=== PATIENT | male | born 1975 | race African-American/Black ===

== ENCOUNTER 2018-01-18 02:09 | Emergency (ER) | payer MEDICAID ==
[~2018-01-18] VITALS: Ht 175.3 cm; Wt 84.1 kg
[2018-01-18 02:18] VITALS: Ht 175.3 cm; Wt 84.1 kg
[2018-01-18 02:32] LABS: BASOPHILS 0.1 % (0-2); EOSINOPHILS 0.2 % (0-7); HEMATOCRIT 47.3 % (42.0-54.0); HEMOGLOBIN 17.2 g/dL (13.5-17.5); IMMATURE GRANULOCYTES 0.2 % (0-5); LYMPHOCYTES 14.4 % (15-50); MCH 30.2 pg (26.0-34.0); MCHC 36.4 g/dL (31.0-37.0); MEAN PLATELET VOLUME 9.2 fL (7.4-10.4); MONOCYTES 7.3 % (2-11); NEUTROPHILS 77.8 % (40-80); PLATELET COUNT 217 10x3/uL (130-400); RDW 12.8 % (11.5-14.5)
[2018-01-18 02:45] LABS: ALBUMIN 3.9 g/dL (3.4-5.0); ALKALINE PHOSPHATASE 168 U/L (46-116); ALT (SGPT) 238 U/L (10-68); BILIRUBIN - TOTAL 0.89 mg/dL (0.2-1.3); CALC OSMOLALITY 272 mosm/kg (275-300); CALCIUM 8.8 mg/dL (8.5-10.1); CARBON DIOXIDE 31.9 mmol/L (21.0-32.0); CHLORIDE - SERUM 101 mmol/L (98-107); CREATININE - SERUM 1.6 mg/dL (0.6-1.3); GLUCOSE 101 mg/dL (74-106); POTASSIUM - SERUM 4.4 mmol/L (3.5-5.1); PROTEIN - SERUM 8.4 g/dL (6.4-8.2); SODIUM 136 mmol/L (136-145); UREA NITROGEN 15 mg/dL (7-18); eGFR NON AFRICAN AMERICAN 51 mL/min (90-120)
[2018-01-18 02:55] LABS: CKMB 0.2 U/L (0.0-3.6); CREATINE KINASE 162 UL (21-232); LIPASE 1191 U/L (73-393); TROPONIN-I < 0.017 ng/mL (0.000-0.060)
[2018-01-18 05:21] LABS: CHOL - HDL RATIO 5.4 ratio (2.3-4.9); LDL-HDL RATIO 3.8 ratio (1.5-3.5)
[2018-01-18] MEDS ORDERED: CORTISPORIN EY7.5 ML EACH EYE (05:58)
[2018-01-18 06:33] VITALS: BP 132/92
== END 2018-01-18 06:34 | disposition home or self-care (01) ==
LOC: D.ER 02:09
PROVIDERS: Emergency Medicine
DX: R07.9 Chest pain, unspecified (principal); H10.30 Unspecified acute conjunctivitis, unspecified eye; R79.89 Other specified abnormal findings of blood chemistry; I10 Essential (primary) hypertension; K85.90 Acute pancreatitis without necrosis or infection, unspecified

== ENCOUNTER 2018-11-09 20:16 | Inpatient (IN) | payer MEDICAID ==
[~2018-11-09] VITALS: Ht 175.3 cm; Wt 81.6 kg
[~2018-11-09 20:16] MED LIST: CORTISPORIN EY7.5 ML EACH EYE
[2018-11-09 20:54] LABS: BASOPHILS 0.3 % (0-2); EOSINOPHILS 0.4 % (0-7); HEMATOCRIT 44.1 % (42.0-54.0); HEMOGLOBIN 15.9 g/dL (13.5-17.5); IMMATURE GRANULOCYTES 0.3 % (0-5); LYMPHOCYTES 27.5 % (15-50); MCH 29.8 pg (26.0-34.0); MCHC 36.1 g/dL (31.0-37.0); MCV 82.6 fL (80.0-100.0); MEAN PLATELET VOLUME 9.3 fL (7.4-10.4); MONOCYTES 6.6 % (2-11); NEUTROPHILS 64.9 % (40-80); PLATELET COUNT 242 10x3/uL (130-400); RBC 5.34 10x6/uL (4.20-6.10); RDW 13.1 % (11.5-14.5); WBC 7.2 10x3/uL (4.8-10.8)
[2018-11-09 21:08] LABS: ALBUMIN 4.1 g/dL (3.4-5.0); ANION GAP 12.3 mmol/L (8-16); BILIRUBIN - TOTAL 0.66 mg/dL (0.2-1.3); CALCIUM 9.1 mg/dL (8.5-10.1); CARBON DIOXIDE 29.1 mmol/L (21.0-32.0); CREATININE - SERUM 1.7 mg/dL (0.6-1.3); POTASSIUM - SERUM 3.4 mmol/L (3.5-5.1); PROTEIN - SERUM 8.4 g/dL (6.4-8.2)
[2018-11-09 22:25] LABS: APPEARANCE CLEAR (CLEAR); BACTERIA FEW /hpf (NONE SEEN); BILIRUBIN NEGATIVE (NEGATIVE); COLOR YELLOW (YELLOW); GLUCOSE NEGATIVE (NEGATIVE); KETONE NEGATIVE (NEGATIVE); NITRITE NEGATIVE (NEGATIVE); PROTEIN NEGATIVE (NEGATIVE); RED CELLS - URINE 0-5 /hpf (0-5); SPECIFIC GRAVITY 1.015 (1.005-1.020); UROBILINOGEN NORMAL (NORMAL); WHITE CELLS - URINE OCC /hpf (0-5)
[2018-11-10] VITALS (7 sets, daily range): BP systolic 137–169; BP diastolic 91–106; BMI 26.6
[2018-11-10] MEDS ORDERED: PRINIVIL10 MG PO (01:59)
[2018-11-10] MEDS ORDERED: ACETAMINOPHEN325 MG PO (02:00)
[2018-11-10 06:15] LABS: BASOPHILS 0 % (0-2); EOSINOPHILS 0 % (0-7); HEMATOCRIT 42.2 % (42.0-54.0); HEMOGLOBIN 15.1 g/dL (13.5-17.5); IMMATURE GRANULOCYTES 0.1 % (0-5); LYMPHOCYTES 10.3 % (15-50); MCH 29.6 pg (26.0-34.0); MCHC 35.8 g/dL (31.0-37.0); MCV 82.7 fL (80.0-100.0); MEAN PLATELET VOLUME 9.4 fL (7.4-10.4); NEUTROPHILS 84.6 % (40-80); PLATELET COUNT 224 10x3/uL (130-400); RDW 13.3 % (11.5-14.5)
[2018-11-10 06:21] LABS: WBC 9.1 10x3/uL (4.8-10.8)
[2018-11-10 06:35] LABS: CALCIUM 8.6 mg/dL (8.5-10.1); CARBON DIOXIDE 27.5 mmol/L (21.0-32.0); CREATININE - SERUM 1.6 mg/dL (0.6-1.3); MAGNESIUM - SERUM 1.9 mg/dL (1.8-2.4)
[2018-11-10 06:36] LABS: POTASSIUM - SERUM 4.5 mmol/L (3.5-5.1)
--- NOTE | 2018-11-10 07:30 | NUR ---
ASSESSMENT COMPLETE. IV TO L AC PATENT. DENIES ANY NEEDS AT THIS TIME.
--- NOTE | 2018-11-10 08:03 | NUR ---
C/O PAIN. DEMEROL/ZOFRAN GIVEN SLOW IVP.
--- NOTE | 2018-11-10 08:10 | NUR ---
SUDDENLY BEGAN VOMITING AFTER DEMEROL GIVEN. ZOFRAN ALREADY GIVEN IVP.
--- NOTE | 2018-11-10 09:30 | NUR ---
SPOKE WITH ANSWERING SERVICE ABOUT CONSULT FOR DR. LEE.
--- NOTE | 2018-11-10 10:55 | NUR ---
RESTING QUIETLY IN BED AT THIS TIME. DENIES ANY NEEDS AT THIS TIME. CALL LIGHT WITHIN REACH.
--- NOTE | 2018-11-10 12:21 | MORECARE ---
CASE MANAGEMENT DISCHARGE SUMMARY PATIENT: AMADOU ZAMARRIPA UNIT: [id number] ADM DATE: 11/09/18 AGE: 43 : [birth year] SEX: M ROOM/BED: D.1203 AUTHOR: MÓNICA TREVINO PHYSICIAN: REFERRING PHYSICIAN: KYLIE FORD MD DATE OF SERVICE: 11/10/18 Discharge Plan Patient Name: AMADOU ZAMARRIPA [facility] [facility] 1975 Planned Disposition: Home Anticipated Discharge Date: Discharge Date: Expected LOS: Initial Reviewer: KYRA Initial Review Date: 11/10/2018 Generated: 11/10/18 1:21 pm DCPIA - Discharge Planning Initial Assessment Updated by KYRA: Juliane Melara on 11/10/18 12:19 pm * Is the patient Alert and Oriented? Yes * How many steps to enter\exit or inside your home? na * PCP does not have one * [facility] * Preadmission Environment Home with Family * ADLs Independent * Equipment None * List name and contact numbers for known caregivers / representatives who currently or will assist patient after discharge: Kimani Zamarripa [phone] * Verbal permission to speak to the caregivers and representatives has been obtained from the patient. N/A * Community resources currently utilized None * Can the patient safely return to the preadmission environment? Yes * Has this patient been hospitalized within the prior 30 days at any hospital? No Patient Name: AMADOU ZAMARRIPA Page [id number] at 1221 All edits/amendments must be made on the electronic document DICTATION DATE: 11/10/18 1220 ARMATURE AND ROTOR WINDER: STALIN 11/10/18 1220 RPT#: [id number] DC DATE: STATUS: ADM IN [facility] [address] [place] [address] END OF REPORT
--- NOTE | 2018-11-10 13:06 | NUR ---
C/O ABDOMINAL PAIN. ZOFRAN GIVEN TO PREVENT NAUSEA FIRST. DEMEROL GIVEN SLOW IVP. DROWSY BUT AWAKENS EASILY TO VERBAL STIMULI. CALL LIGHT IN REACH.
--- NOTE | 2018-11-10 17:12 | NUR ---
ZOFRAN GIVEN SLOW IVP. DEMEROL GIVEN SLOW IVP FOR C/O ABDOMINAL PAIN. CALL LIGHT WITHIN REACH.
--- NOTE | 2018-11-10 18:56 | NUR ---
PT IN BED. A&O X4. DENIES NEEDS AT THIS TIME.
--- NOTE | 2018-11-10 19:02 | NUR ---
SCD'S APPLIED TO BILAT LEGS.
--- NOTE | 2018-11-10 23:17 | NUR ---
I have reviewed this patient and I concur with the Shift Assessment completed by the Licensed Practical Nurse today this shift.
[2018-11-11 00:41] VITALS: BP 140/93
[2018-11-11 05:42] VITALS: BP 133/89
[2018-11-11 06:17] LABS: BASOPHILS 0.1 % (0-2); EOSINOPHILS 0.1 % (0-7); HEMATOCRIT 40.3 % (42.0-54.0); HEMOGLOBIN 14.1 g/dL (13.5-17.5); IMMATURE GRANULOCYTES 0.2 % (0-5); LYMPHOCYTES 10.9 % (15-50); MCH 29.6 pg (26.0-34.0); MCV 84.5 fL (80.0-100.0); MEAN PLATELET VOLUME 9.4 fL (7.4-10.4); MONOCYTES 5.7 % (2-11); PLATELET COUNT 181 10x3/uL (130-400); RBC 4.77 10x6/uL (4.20-6.10); RDW 13.3 % (11.5-14.5); WBC 10.5 10x3/uL (4.8-10.8)
[2018-11-11 06:38] LABS: ALBUMIN 3.2 g/dL (3.4-5.0); BILIRUBIN - TOTAL 0.8 mg/dL (0.2-1.3); CALCIUM 8.2 mg/dL (8.5-10.1); CARBON DIOXIDE 30.8 mmol/L (21.0-32.0); MAGNESIUM - SERUM 1.7 mg/dL (1.8-2.4); PROTEIN - SERUM 6.7 g/dL (6.4-8.2)
[2018-11-11 06:39] LABS: ANION GAP 6.9 mmol/L (8-16); CREATININE - SERUM 2.3 mg/dL (0.6-1.3); POTASSIUM - SERUM 3.7 mmol/L (3.5-5.1)
--- NOTE | 2018-11-11 09:34 | NUR ---
PATIENT ALERT AND ORIENTED THIS MORNING. AT BEDSIDE. DID NOT EAT BREAKFAST. C/O PAIN 9 OUT OF 10 PAIN LEVEL. MEDICATED WITH PRN DEMEROL AT 0810 GIVING PRN ZOFRAN BEFORE GIVING DEMEROL. GOOD RESULTS. PAIENT RESTING IN BED WATCHING TV AT THIS TIME. CALL LIGHT WITHIN REACH. WILL CONTINUE TO MONITOR.
[2018-11-11 10:29] VITALS: BP 145/96
--- NOTE | 2018-11-11 11:40 | NUR ---
GAVE PRN PAIN MEDICATION 20 MINUTES EARLY DUE TO PAIN CRYING AND MOANING OUT IN PAIN.
--- NOTE | 2018-11-11 12:17 | NUR ---
PATIENT SLEEPING. PAIN MEDICATION EFFECTIVE.
[2018-11-11 16:26] VITALS: BP 157/94
--- NOTE | 2018-11-11 21:05 | NUR ---
PT HAS ITCH IN ALL OVER BODY AND SMALL BUMP IN LEFT ARM, PT SAID HE HAD NOT BEEN SEENING THIS HAPPEN SINCE DILAUDID GIVEN AT ABOUT 1850. TALKED TO CHARGE NURSE ABOUT IT AND CHARGE NURSE PUT IN ORDER ASHER FOR PT.
[2018-11-11 21:31] VITALS: BP 152/96
--- NOTE | 2018-11-11 23:45 | NUR ---
HAD CALLED PHARMACY DATA ANALYST TWO TIMES FOR PT'S ASHER, PHARMACY DATA ANALYST SAID SHE IS BUSY.
[2018-11-12 00:19] VITALS: BP 159/101
--- NOTE | 2018-11-12 00:34 | NUR ---
I HAVE REVIEWED THIS PATIENT AND I CONCUR WITH THE SHIFT ASSESSMENT COMPLETED BY THE ALBERENE STONE SETTER THIS SHIFT.
--- NOTE | 2018-11-12 01:02 | NUR ---
PT C/O PAIN IN BACK, A LEVEL OF 9, DEMEROL 1.5ML GIVEN ORDERED.
[2018-11-12 04:30] VITALS: BP 159/103
[2018-11-12 06:51] LABS: BASOPHILS 0.1 % (0-2); EOSINOPHILS 0.7 % (0-7); HEMATOCRIT 39.3 % (42.0-54.0); HEMOGLOBIN 13.9 g/dL (13.5-17.5); IMMATURE GRANULOCYTES 0.1 % (0-5); LYMPHOCYTES 16.3 % (15-50); MCH 29.9 pg (26.0-34.0); MCHC 35.4 g/dL (31.0-37.0); MCV 84.5 fL (80.0-100.0); MEAN PLATELET VOLUME 9.4 fL (7.4-10.4); MONOCYTES 7.7 % (2-11); NEUTROPHILS 75.1 % (40-80); PLATELET COUNT 189 10x3/uL (130-400); RBC 4.65 10x6/uL (4.20-6.10); RDW 12.9 % (11.5-14.5); WBC 8.5 10x3/uL (4.8-10.8)
[2018-11-12 07:07] LABS: ALBUMIN 3.1 g/dL (3.4-5.0); ANION GAP 10.3 mmol/L (8-16); BILIRUBIN - TOTAL 1.06 mg/dL (0.2-1.3); CALCIUM 8.5 mg/dL (8.5-10.1); CARBON DIOXIDE 30.4 mmol/L (21.0-32.0); CREATININE - SERUM 1.8 mg/dL (0.6-1.3); MAGNESIUM - SERUM 1.7 mg/dL (1.8-2.4); POTASSIUM - SERUM 3.7 mmol/L (3.5-5.1)
[2018-11-12 07:30] VITALS: BP 153/108
--- NOTE | 2018-11-12 09:57 | NUR ---
NICK TELEMETRY RN TO ORDER MORPHINE.
--- NOTE | 2018-11-12 10:43 | NUR ---
NICK CADET DC'D DEMEROL AND PT IS ALLERGIC TO DILAUDID AND THEN ORDERING MORPHINE WHICH DID NOT TOUCH PT'S PAIN. PT HUNCHED IN POSITION CRYING OUT IN PAIN AFTER MORPHINE WAS GIVEN. PT'S REQUESTS PCP TO BE SWITCHED TO SOMEONE WHO WILL TREAT PAIN WITH DEMEROL. NOTIFIED SENIOR BIOSTATISTICIAN OF SITUATION SHE STATES TO CALL DR. SEN. CALLED DR. SEN AND I AM TRYING TO EXPLAIN SITAUTION TO HIM HE KEPT CUTTING ME OFF AND NOT LETTING ME FINISH MY SENTENCES HE STATES HE WILL NOT GIVE DEMEROL AND THAT HE "WILL TAKE CARE OF IT" AND HUNG UP THE PHONE. CALLED FERMIN SENIOR BIOSTATISTICIAN AND SHE STATES SHE WILL CALL DR. SEN.
[2018-11-12 12:21] VITALS: Ht 175.3 cm; Wt 81.6 kg
[2018-11-12 13:02] VITALS: BP 141/88
--- NOTE | 2018-11-12 13:44 | NUR ---
ALERT AND ORIENTED X4. RESTING IN BED. TORADOL INJ MANAGING PAIN. REPORTS PAIN 3/10. AGREE WITH ELECTRONIC ENGINEERING DRAFTSPERSON ASSESSMENT. ELBERT BAL RESUMES PLAN OF CARE AND SAFETY PRECAUTIONS.
--- NOTE | 2018-11-12 14:50 | NUR ---
LEFT AC 20G IV INFILTRATED. DC'D WITH CATH INTACT. INSERTED RIGHT FA 20G IV X1 ATTEMPT.
--- NOTE | 2018-11-12 19:21 | NUR ---
AT BEDSIDE. CALL LIGHT IN REACH.
[2018-11-12 20:05] VITALS: BP 156/63
[2018-11-12 20:10] VITALS: BP 156/63
--- NOTE | 2018-11-13 00:16 | NUR ---
REST QUIETLY IN BED, CALL LIGHT IN REACH.
[2018-11-13 01:33] VITALS: BP 137/96
--- NOTE | 2018-11-13 03:44 | NUR ---
REST QUIETLY IN BED, CALL LIGHT IN REACH.
[2018-11-13 05:52] VITALS: BP 155/96
[2018-11-13 06:16] LABS: BASOPHILS 0.2 % (0-2); EOSINOPHILS 1.6 % (0-7); HEMATOCRIT 37.5 % (42.0-54.0); HEMOGLOBIN 13.1 g/dL (13.5-17.5); IMMATURE GRANULOCYTES 0.2 % (0-5); LYMPHOCYTES 28.7 % (15-50); MCH 29.2 pg (26.0-34.0); MCHC 34.9 g/dL (31.0-37.0); MCV 83.7 fL (80.0-100.0); MEAN PLATELET VOLUME 9.4 fL (7.4-10.4); MONOCYTES 6.5 % (2-11); NEUTROPHILS 62.8 % (40-80); PLATELET COUNT 204 10x3/uL (130-400); RBC 4.48 10x6/uL (4.20-6.10); RDW 12.8 % (11.5-14.5)
[2018-11-13 06:38] LABS: ALBUMIN 2.9 g/dL (3.4-5.0); ANION GAP 11.2 mmol/L (8-16); BILIRUBIN - TOTAL 0.47 mg/dL (0.2-1.3); CALCIUM 8.3 mg/dL (8.5-10.1); CARBON DIOXIDE 27.9 mmol/L (21.0-32.0); CREATININE - SERUM 1.7 mg/dL (0.6-1.3); MAGNESIUM - SERUM 1.8 mg/dL (1.8-2.4); PROTEIN - SERUM 6.6 g/dL (6.4-8.2)
[2018-11-13 06:39] LABS: POTASSIUM - SERUM 3.1 mmol/L (3.5-5.1)
[2018-11-13 06:56] LABS: WBC 5.5 10x3/uL (4.8-10.8)
--- NOTE | 2018-11-13 07:20 | NUR ---
INITIAL ROUNDING ON THE PATIENT, HE IS ASLEEP WITH THE LIGHTS OFF, NO S/S OF SOB, CALL LIGHT IN THE BED WITH THE PATIENT.
[2018-11-13 08:43] VITALS: BP 148/91
[2018-11-13] MEDS ORDERED: TORADOL10 MG PO (10:53)
--- NOTE | 2018-11-14 08:20 | MORECARE ---
CASE MANAGEMENT DISCHARGE SUMMARY PATIENT: AMADOU ZAMARRIPA UNIT: [id number] ADM DATE: 11/11/18 AGE: 43 : 79 SEX: M ROOM/BED: D.1203 AUTHOR: BELINDA,DOC PHYSICIAN: REFERRING PHYSICIAN: KYLIE FORD MD DATE OF SERVICE: 11/14/18 Discharge Plan Patient Name: AMADOU ZAMARRIPA Facility: [facility]:[place] : 1975 Planned Disposition: Home Anticipated Discharge Date: Discharge Date: 11/13/2018 Expected LOS: Initial Reviewer: [email or web address] Initial Review Date: 11/10/2018 Generated: 11/14/18 9:20 am DCP- Discharge Planning Updated by [email or web address]: Juliane Melara on 11/10/18 11:[address] Patient Name: AMADOU ZAMARRIPA Admission Status: ER Accout number: [id number] Admission Date: 11-09-2018 : 1975 Admission Diagnosis: Attending: KYLIE RASHID Current LOS: 1 Anticipated DC Date: Planned Disposition: Home Primary Insurance: MEDICAID [place] Discharge Planning Comments: CM met with patient about discharge planning. CM explained CM role and verbal consent was given to do dc assessment. CM educated on Home Health, DME and rehab services that are available. Patient states his/her discharge plan is to return to home with Kimani. States home environment is safe. Denies any discharge planning needs at this time. States will drive him home upon discharge. CM will continue to follow and assist as needed with discharge planning needs. Hospice Clinical Marketer: Juliane Melara DCPIA - Discharge Planning Initial Assessment Updated by [email or web address]: Juliane Melara on 11/10/18 12:19 pm * Is the patient Alert and Oriented? Yes * How many steps to enter\exit or inside your home? na * PCP does not have one * [facility] * Preadmission Environment Home with Family * ADLs Independent * Equipment None * List name and contact numbers for known caregivers / representatives who currently or will assist patient after discharge: Kimani Zamarripa [phone] * Verbal permission to speak to the caregivers and representatives has been obtained from the patient. N/A * Community resources currently utilized None * Can the patient safely return to the preadmission environment? Yes * Has this patient been hospitalized within the prior 30 days at any hospital? No Last DP export: 11/10/18 11:21 am Patient Name: AMADOU ZAMARRIPA Page [id number] at 0820 All edits/amendments must be made on the electronic document DICTATION DATE: 11/14/18818 MANAGER ASSESSMENT: STALIN 11/14/18818 RPT#: [id number] DC DATE:11/13/18 STATUS: DIS IN [facility] [address] [place] [address] END OF REPORT
== END 2018-11-13 12:54 | disposition home or self-care (01) | DRG 694 ==
LOC: D.ER 20:16 → D.M3 23:52 → OBSVTIME 23:52 → D.EDHOLD 23:52 → D.M3 11-10 00:08
PROVIDERS: Family Medicine; ADMIT Family Medicine Adult Medicine; ATTEND Family Medicine Adult Medicine
DX: N13.2 Hydronephrosis with renal and ureteral calculous obstruction (principal); N17.9 Acute kidney failure, unspecified; I12.9 Hypertensive chronic kidney disease with stage 1 through stage 4 chronic kidney disease, or unspecified chronic kidney disease; N18.3 Chronic kidney disease, stage 3 (moderate); E87.6 Hypokalemia; E83.42 Hypomagnesemia